=== PATIENT | male | born 1985 | race Hispanic/Latino ===

== ENCOUNTER 2018-03-25 07:27 | Emergency (ER) | payer SELFPAY ==
[2018-03-25] MEDS ORDERED: ONDANSETRON HCL 4 MG/2 ML VIAL ONE (07:41)
[2018-03-25] MEDS ORDERED: MORPHINE SULFATE 2 MG/ML 1ML SYG ONE (07:41)
[2018-03-25] MEDS ORDERED: KETOROLAC TROMETHAMINE 30MG/ML ONE (08:18)
[2018-03-25] MEDS ORDERED: LORAZEPAM 2 MG/ML 1 ML VIAL ONE (08:58)
[2018-03-25] MEDS ORDERED: HYDROMORPHONE 1 MG/1 ML AMP ONE (08:59)
[2018-03-25 09:17] LABS: APPEARANCE,URINE TURBID (CLEAR); BILIRUBIN,URINE SMALL (NEGATIVE); COLOR,URINE RED (YELLOW); GLUCOSE, URINE (UA) NEGATIVE (NEGATIVE); KETONES,URINE 5 mg/dL (NEGATIVE); LEUKOCYTE ESTERASE ,URINE LARGE (NEGATIVE); NITRATE,URINE POSITIVE (NEGATIVE); OCCULT BLOOD,URINE LARGE (NEGATIVE); PH,URINE 6.5 (5.0-8.0); PROTEIN,URINE 100 (NEGATIVE); UROBILINOGEN,URINE 0.2 mg/dL (0.2-1.0)
[2018-03-25 09:21] LABS: RBC,URINE TNTC /HPF (0-1)
[2018-03-25 09:22] LABS: BACTERIA,URINE Rare /HPF (None Seen)
[2018-03-25 09:23] LABS: SQUAMOUS EPITHELIAL CELL,UR Rare /HPF (0-2)
[2018-03-25] MEDS ORDERED: SODIUM CHLORIDE 0.9% 100 ML IV ONE (10:04)
[2018-03-25] MEDS ORDERED: CEFTRIAXONE SODIUM 1 GM ONE (10:04)
== END 2018-03-25 10:36 | disposition home or self-care (01) ==
LOC: EDH 07:27
DX: S39.81XA Other specified injuries of abdomen, initial encounter (principal); N30.91 Cystitis, unspecified with hematuria; Z87.442 Personal history of urinary calculi; Z72.0 Tobacco use; W01.198A Fall on same level from slipping, tripping and stumbling with subsequent striking against other object, initial encounter; Y93.01 Activity, walking, marching and hiking; Y92.89 Other specified places as the place of occurrence of the external cause; Y99.8 Other external cause status
CPT/HCPCS: 72100; 74018; 81001; 96374; 96375; 99285; J0696; J1170; J1885; J2060; J2405

== ENCOUNTER 2018-04-07 11:25 | Emergency (ER) | payer SELFPAY ==
[2018-04-07 11:44] LABS: APPEARANCE,URINE CLOUDY (CLEAR); BILIRUBIN,URINE SMALL (NEGATIVE); GLUCOSE, URINE (UA) NEGATIVE (NEGATIVE); KETONES,URINE NEGATIVE (NEGATIVE); LEUKOCYTE ESTERASE ,URINE MODERATE (NEGATIVE); NITRATE,URINE NEGATIVE (NEGATIVE); OCCULT BLOOD,URINE LARGE (NEGATIVE); PH,URINE 5.5 (5.0-8.0); PROTEIN,URINE 100 (NEGATIVE)
[2018-04-07] MEDS ORDERED: ONDANSETRON HCL 4 MG/2 ML VIAL ONE (11:46)
[2018-04-07] MEDS ORDERED: HYDROMORPHONE HCL 0.5 MG/0.5 ML ML ONE (11:47)
[2018-04-07 12:06] LABS: BASOPHILS % (AUTO) 0.9 % (0.0-5.0); EOSINOPHILS % (AUTO) 3.4 % (0.0-8.0); LYMPHOCYTES % (AUTO) 26.3 % (21.0-51.0); MEAN CORPUSCULAR HEMOGLOBIN 29.5 pg (27.0-33.0); MEAN CORPUSCULAR HGB CONC 34.5 g/dL (32.0-36.0); MEAN CORPUSCULAR VOLUME 85.5 fL (79-99); MONOCYTES % (AUTO) 6.1 % (3.0-13.0); NEUTROPHILS % (AUTO) 63.3 % (40.0-77.0); PLATELET COUNT (AUTO) 308 K/uL (130-400); RED BLOOD CELL COUNT(AUTO) 5.38 MIL/uL (4.50-6.20); RED CELL DISTRIBUTION WIDTH 12.8 % (11.0-15.5); WHITE BLOOD COUNT (AUTO) 10.2 K/uL (4.8-10.8)
[2018-04-07 12:13] LABS: CREATININE 1.2 mg/dL (0.5-1.5); POTASSIUM 3.8 mmol/L (3.5-5.1)
[2018-04-07] MEDS ORDERED: KETOROLAC TROMETHAMINE 30MG/ML ONE (12:16)
[2018-04-07 12:18] LABS: ALBUMIN 3.7 g/dL (3.5-5.0); BILIRUBIN,TOTAL 0.4 mg/dL (0.2-1.0); TOTAL PROTEIN, SERUM 7.4 g/dL (6.0-8.3)
[2018-04-07 12:21] LABS: COLOR,URINE Amber (YELLOW)
[2018-04-07 12:34] LABS: AMPHET/METH SCREEN,URINE NEGATIVE (NEGATIVE); BARBITURATE SCREEN, URINE NEGATIVE (NEGATIVE); BENZODIAZEPINES SCREEN,URINE NEGATIVE (NEGATIVE); CANNABINOID SCREEN,URINE POSITIVE (NEGATIVE); COCAINE SCREEN,URINE NEGATIVE (NEGATIVE); OPIATE SCREEN,URINE POSITIVE (NEGATIVE); PHENCYCLIDINE SCREEN,URINE NEGATIVE (NEGATIVE)
[2018-04-07 12:38] LABS: BACTERIA,URINE Moderate /HPF (None Seen); RBC,URINE TNTC /HPF (0-1); SQUAMOUS EPITHELIAL CELL,UR Rare /HPF (0-2)
== END 2018-04-07 14:42 | disposition home or self-care (01) ==
LOC: EDH 11:25
DX: N20.1 Calculus of ureter (principal); Z87.442 Personal history of urinary calculi; Z72.0 Tobacco use
CPT/HCPCS: 36415; 80053; 80305; 81001; 85025; 96374; 96375; 99284; J1170; J1885; J2405

== ENCOUNTER → 2018-07-11 | Outpatient (CLI) | payer OTHER | END | disposition home or self-care (01) | LOC: RAH 11:05 | PROVIDERS: ATTEND Family Medicine | DX: M17.11 Unilateral primary osteoarthritis, right knee (principal) | CPT/HCPCS: 73562 ==

== ENCOUNTER 2019-09-13 06:44 | Day surgery (SDC) | payer OTHER ==
[2019-09-12 15:46] LABS: BASOPHILS % (AUTO) 0.6 % (0.0-5.0); EOSINOPHILS % (AUTO) 3.3 % (0.0-8.0); LYMPHOCYTES % (AUTO) 24.3 % (21.0-51.0); MEAN CORPUSCULAR HEMOGLOBIN 29.9 pg (27.0-33.0); MEAN CORPUSCULAR HGB CONC 33.6 g/dL (32.0-36.0); MONOCYTES % (AUTO) 8.8 % (3.0-13.0); PLATELET COUNT (AUTO) 229 K/uL (130-400); RED BLOOD CELL COUNT(AUTO) 5.62 MIL/uL (4.50-6.20); RED CELL DISTRIBUTION WIDTH 13.1 % (11.0-15.5); WHITE BLOOD COUNT (AUTO) 11.7 K/uL (4.8-10.8)
[2019-09-12 15:55] VITALS: BP 175/83
[2019-09-12 16:01] LABS: POTASSIUM 3.9 mmol/L (3.5-5.1)
[2019-09-12 16:23] VITALS: BP 140/79
--- NOTE | 2019-09-12 18:21 | NUR ---
NOTIFIED OF WBC 11.7, NO NEW ORDERS, OKAY TO PROCEED.
[2019-09-13] VITALS (19 sets, daily range): BP systolic 122–164; BP diastolic 59–95
[~2019-09-13] VITALS: Ht 188 cm; Wt 136.8 kg
[~2019-09-13 06:44] MED LIST: CLINDAMYCIN 900 MG/D5% WATER 50 ML IV SCH
[2019-09-13] MEDS ORDERED: LACTATED RINGERS 1000ML 1,000 ML IV ONE (07:34)
[2019-09-13] MEDS ORDERED: SUCCINYLCHOLINE 200MG/10ML SYR ONE ×2 (07:51→07:53)
[2019-09-13] MEDS ORDERED: LIDOCAINE PF 2% 5ML ABBOJECT ONE ×2 (07:51→07:52)
[2019-09-13] MEDS ORDERED: DEXAMETHASONE SOD PHOSPHATE 10MG/ML 1ML VIAL ONE (07:51)
[2019-09-13] MEDS ORDERED: ROCURONIUM 10MG/1ML SYR 10 MG/ML ML ONE (07:52)
[2019-09-13] MEDS ORDERED: ONDANSETRON HCL 4 MG/2 ML VIAL ONE ×2 (07:52→11:01)
[2019-09-13] MEDS ORDERED: MIDAZOLAM HCL 1 MG/ML 2ML VIAL ONE (07:52)
[2019-09-13] MEDS ORDERED: FENTANYL CITRATE PF 50 MCG/1 ML 2ML VIAL ONE ×2 (07:52→09:38)
[2019-09-13] MEDS ORDERED: NEOSTIGMINE 5MG/5ML SYR IV ONE (07:52)
[2019-09-13] MEDS ORDERED: GLYCOPYRROLATE 1 MG/5 ML SYRINGE ONE (07:52)
[2019-09-13] MEDS ORDERED: PROPOFOL 10 MG/ML 20ML VIAL IV ONE (07:52)
[2019-09-13] MEDS ORDERED: MEPERIDINE-PF 25 MG/ML SYG ONE ×4 (08:45→10:14)
[2019-09-13] MEDS ORDERED: IBUP-2070 PO (09:52)
[2019-09-13] MEDS ORDERED: ACET1TAB12 PO (09:52)
[2019-09-13] MEDS ORDERED: CLIN300C3 PO (09:52)
== END 2019-09-13 11:57 | disposition home or self-care (01) ==
LOC: DAH 06:44
PROVIDERS: ATTEND Orthopaedic Surgery
DX: M23.91 Unspecified internal derangement of right knee (principal); M22.41 Chondromalacia patellae, right knee; M25.561 Pain in right knee; G89.29 Other chronic pain; M17.11 Unilateral primary osteoarthritis, right knee; I10 Essential (primary) hypertension; E11.9 Type 2 diabetes mellitus without complications; Z88.8 Allergy status to other drugs, medicaments and biological substances; Z79.899 Other long term (current) drug therapy; Z98.890 Other specified postprocedural states; Z87.891 Personal history of nicotine dependence
CPT/HCPCS: 29877; 36415; 80048; 85025; A4215; A4221; A4222; A4223; A4606; A4649; A4663; A4930 ×2; A6223; J0330 ×2; J1100; J2001 ×2; J2175 ×4; J2250; J2405 ×2; J2704; J2710; J3010 ×2; J3490 ×2; J7120 ×2

== ENCOUNTER 2021-06-12 20:42 | Emergency (ER) | payer BC, OTHER ==
[~2021-06-12] VITALS: Ht 188 cm; Wt 149.7 kg
[~2021-06-12 20:42] MED LIST changes: +ACET1TAB12 PO; +CLIN300C3 PO; -CLINDAMYCIN 900 MG/D5% WATER 50 ML IV SCH; +IBUP-2070 PO
[2021-06-12 21:12] VITALS: BP 134/72
[2021-06-12] MEDS ORDERED: TAMSULOSIN HCL 0.4 MG CAP.ER.24H PO SCH (22:00)
[2021-06-12] MEDS ORDERED: KETOROLAC 30MG VIAL (30MG/ML) IV ONE (22:00)
[2021-06-12 22:03] LABS: BASOPHILS % (AUTO) 0.7 % (0.0-5.0); HEMATOCRIT 48.6 % (42-54); MEAN CORPUSCULAR HEMOGLOBIN 29.1 pg (27.0-33.0); MEAN CORPUSCULAR HGB CONC 33.1 g/dL (32.0-36.0); MEAN CORPUSCULAR VOLUME 87.7 fL (79-99); MONOCYTES % (AUTO) 8.5 % (3.0-13.0); NEUTROPHILS % (AUTO) 63.3 % (40.0-77.0); PLATELET COUNT (AUTO) 255 K/uL (130-400); RED BLOOD CELL COUNT(AUTO) 5.54 MIL/uL (4.50-6.20); RED CELL DISTRIBUTION WIDTH 12.9 % (11.0-15.5)
[2021-06-12 22:17] LABS: CARBON DIOXIDE 26 mmol/L (21-32); CHLORIDE 105 mmol/L (101-111); CREATININE 0.9 mg/dL (0.5-1.5); GLOMERULAR FILTR. RATE CALC 101 mL/min (>60); GLUCOSE,RANDOM 102 mg/dL (70-105); POTASSIUM 4.2 mmol/L (3.5-5.1); SODIUM SERUM 143 mmol/L (136-145); UREA NITROGEN, BLOOD 16 mg/dL (7-18)
[2021-06-12 22:22] LABS: ALANINE AMINOTRANSFERASE 41 U/L (12-78); ALBUMIN 4.2 g/dL (3.5-5.0); ASPARTATE AMINOTRANSFERASE 29 U/L (10-37); BILIRUBIN,TOTAL 0.3 mg/dL (0.2-1.0); TOTAL PROTEIN, SERUM 7.8 g/dL (6.0-8.3)
[2021-06-12 22:26] LABS: CRP QUANTITATIVE < 2.00 mg/L (0.00-9.0)
[2021-06-12] MEDS ORDERED: DICY20TA2 PO (23:16)
[2021-06-12 23:23] VITALS: BP 128/67
== END 2021-06-12 23:40 | disposition home or self-care (01) ==
LOC: EDH 20:42
DX: R10.9 Unspecified abdominal pain (principal); Z88.1 Allergy status to other antibiotic agents; Z79.899 Other long term (current) drug therapy; Z87.442 Personal history of urinary calculi
CPT/HCPCS: 36415; 74176; 80053; 85025; 86140; 96374; 99284; J1885

== ENCOUNTER 2021-10-21 12:17 | Emergency (ER) | payer BC ==
[~2021-10-21] VITALS: Ht 188 cm; Wt 147.4 kg
[~2021-10-21 12:17] MED LIST changes: +DICY20TA2 PO
[2021-10-21 13:26] LABS: CREATININE 0.8 mg/dL (0.5-1.5); POTASSIUM 4.1 mmol/L (3.5-5.1)
[2021-10-21 13:30] LABS: BASOPHILS % (AUTO) 0.4 % (0.0-5.0); EOSINOPHILS % (AUTO) 1.8 % (0.0-8.0); HEMATOCRIT 48.4 % (42-54); LYMPHOCYTES % (AUTO) 20.7 % (21.0-51.0); MEAN CORPUSCULAR HEMOGLOBIN 29.4 pg (27.0-33.0); MEAN CORPUSCULAR HGB CONC 33.3 g/dL (32.0-36.0); MEAN CORPUSCULAR VOLUME 88.3 fL (79-99); MONOCYTES % (AUTO) 8.1 % (3.0-13.0); NEUTROPHILS % (AUTO) 68.5 % (40.0-77.0); PLATELET COUNT (AUTO) 242 K/uL (130-400); RED BLOOD CELL COUNT(AUTO) 5.48 MIL/uL (4.50-6.20); RED CELL DISTRIBUTION WIDTH 12.5 % (11.0-15.5); WHITE BLOOD COUNT (AUTO) 10.7 K/uL (4.8-10.8)
[2021-10-21 13:31] LABS: ALBUMIN 3.9 g/dL (3.5-5.0); BILIRUBIN,TOTAL 0.3 mg/dL (0.2-1.0); TOTAL PROTEIN, SERUM 7.2 g/dL (6.0-8.3)
[2021-10-21 14:41] LABS: APPEARANCE,URINE Cloudy (CLEAR); BILIRUBIN,URINE Negative (NEGATIVE); COLOR,URINE Yellow (YELLOW); GLUCOSE, URINE (UA) Negative (NEGATIVE); KETONES,URINE Negative (NEGATIVE); LEUKOCYTE ESTERASE ,URINE Trace (NEGATIVE); NITRATE,URINE Negative (NEGATIVE); OCCULT BLOOD,URINE Negative (NEGATIVE); PROTEIN,URINE Negative (NEGATIVE); UROBILINOGEN,URINE 0.2 mg/dL (0.2-1.0)
[2021-10-21 14:45] VITALS: BP 145/98
[2021-10-21 15:01] LABS: BACTERIA,URINE Few /HPF (None Seen); MUCUS,URINE Rare LPF (None Seen); RBC,URINE 0-1 /HPF (0-1); SQUAMOUS EPITHELIAL CELL,UR Few /HPF (0-2); WBC,URINE 0-1 /HPF (0-1)
[2021-10-21 15:02] LABS: AMORPHOUS SEDIMENT,UR Few /LPF (None Seen)
[2021-10-21] MEDS ORDERED: DiphenhydrAMINE HCL 50 MG/ML VIAL IM ONE (15:30)
[2021-10-21] MEDS ORDERED: DEXAMETHASONE SOD PHOSPHATE 4 MG/ML 1ML VIAL IM SCH (15:30)
[2021-10-21 15:31] LABS: AMPHET/METH SCREEN,URINE NEGATIVE (NEGATIVE); BARBITURATE SCREEN, URINE NEGATIVE (NEGATIVE); BENZODIAZEPINES SCREEN,URINE NEGATIVE (NEGATIVE); CANNABINOID SCREEN,URINE POSITIVE (NEGATIVE); COCAINE SCREEN,URINE NEGATIVE (NEGATIVE); OPIATE SCREEN,URINE NEGATIVE (NEGATIVE); PHENCYCLIDINE SCREEN,URINE NEGATIVE (NEGATIVE)
[2021-10-21] MEDS ORDERED: FAMOTIDINE 20MG TAB ONE (15:43)
[2021-10-21] MEDS ORDERED: HYDR-3421 PO (16:10)
[2021-10-21] MEDS ORDERED: METH4TAB3 PO (16:10)
[2021-10-21] MEDS ORDERED: FAMO40TA75 PO (16:10)
[2021-10-21] MEDS ORDERED: FAMOTIDINE 20MG TAB PO SCH (21:00)
== END 2021-10-21 16:59 | disposition home or self-care (01) ==
LOC: EDH 12:17
DX: L50.9 Urticaria, unspecified (principal); R07.89 Other chest pain; Z79.1 Long term (current) use of non-steroidal anti-inflammatories (NSAID); Z79.52 Long term (current) use of systemic steroids; Z88.1 Allergy status to other antibiotic agents; Z87.442 Personal history of urinary calculi
CPT/HCPCS: 36415; 71045; 80053; 80305; 81001; 85025; 93005; 96372 ×2; 99284; J1100; J1200

== ENCOUNTER 2022-06-21 13:27 | Emergency (ER) | payer BC ==
[~2022-06-21] VITALS: Ht 188 cm; Wt 140.6 kg
[~2022-06-21 13:27] MED LIST changes: +FAMO40TA75 PO; +HYDR-3421 PO; +METH4TAB3 PO
[2022-06-21] MEDS ORDERED: METH4TAB3 PO (14:41)
[2022-06-21 14:50] VITALS: BP 137/64
== END 2022-06-21 14:51 | disposition home or self-care (01) ==
LOC: EDH 13:27
DX: M77.11 Lateral epicondylitis, right elbow (principal); I10 Essential (primary) hypertension; Z79.1 Long term (current) use of non-steroidal anti-inflammatories (NSAID); Z79.52 Long term (current) use of systemic steroids; Z88.1 Allergy status to other antibiotic agents
CPT/HCPCS: 73080

== ENCOUNTER 2022-07-12 12:29 | Emergency (ER) | payer BC ==
[~2022-07-12] VITALS: Ht 188 cm; Wt 145.1 kg
[2022-07-12 13:21] VITALS: BP 140/76
[2022-07-12] MEDS ORDERED: KETOROLAC 60 MG VIAL (30MG/ML) IM ONE ×2 (13:30→13:46)
[2022-07-12] MEDS ORDERED: DEXAMETHASONE SOD PHOSPHATE 4 MG/ML 1ML VIAL IM ONE (13:30)
[2022-07-12] MEDS ORDERED: ACET1TAB97 PO (13:37)
[2022-07-12] MEDS ORDERED: IBUP-2070 PO (13:37)
[2022-07-12] MEDS ORDERED: METH4TAB3 PO (13:37)
[2022-07-12] MEDS ORDERED: DEXAMETHASONE SOD PHOSPHATE 4 MG/ML 1ML VIAL ONE (13:46)
== END 2022-07-12 14:13 | disposition home or self-care (01) ==
LOC: EDH 12:29
DX: M54.17 Radiculopathy, lumbosacral region (principal); I10 Essential (primary) hypertension; Z79.1 Long term (current) use of non-steroidal anti-inflammatories (NSAID); Z79.52 Long term (current) use of systemic steroids; Z87.442 Personal history of urinary calculi; Z88.1 Allergy status to other antibiotic agents
CPT/HCPCS: 99284; 96372 ×2; J1100; J1885

== ENCOUNTER 2023-01-19 09:39 | Emergency (ER) | payer BC ==
[~2023-01-19] VITALS: Ht 188 cm; Wt 142.9 kg
[~2023-01-19 09:39] MED LIST changes: +ACET1TAB97 PO
[2023-01-19 09:44] VITALS: BP 164/89
[2023-01-19 10:27] LABS: APPEARANCE,URINE CLEAR (CLEAR); BILIRUBIN,URINE NEGATIVE (NEGATIVE); COLOR,URINE LIGHT-YELLOW (YELLOW); GLUCOSE, URINE (UA) NEGATIVE (NEGATIVE); KETONES,URINE NEGATIVE (NEGATIVE); LEUKOCYTE ESTERASE ,URINE NEGATIVE Leu/uL (NEGATIVE); NITRATE,URINE NEGATIVE (NEGATIVE); OCCULT BLOOD,URINE NEGATIVE (NEGATIVE); PH,URINE 6.5 (5.0-8.0); PROTEIN,URINE NEGATIVE (NEGATIVE); UROBILINOGEN,URINE 0.2 mg/dL (0.2-1.0)
[2023-01-19] MEDS ORDERED: ONDANSETRON 4MG INJ IVP ONE (10:30)
[2023-01-19] MEDS ORDERED: MORPHINE 4 MG SYG IVP ONE (10:30)
[2023-01-19] MEDS ORDERED: 0.9%NACL 1000ML 1,000 ML IV ONE (10:30)
[2023-01-19] MEDS ORDERED: KETOROLAC 15MG/ML VIAL (15MG/ML) IV ONE (10:30)
[2023-01-19 10:34] LABS: CREATININE 0.9 mg/dL (0.5-1.5); POTASSIUM 3.8 mmol/L (3.5-5.1)
[2023-01-19 10:36] LABS: BASOPHILS % (AUTO) 0.6 % (0.0-5.0); EOSINOPHILS % (AUTO) 2.5 % (0.0-8.0); HEMATOCRIT 48.2 % (42-54); LYMPHOCYTES % (AUTO) 19.2 % (21.0-51.0); MEAN CORPUSCULAR HEMOGLOBIN 29.8 pg (27.0-33.0); MEAN CORPUSCULAR VOLUME 87.5 fL (79-99); MONOCYTES % (AUTO) 8.6 % (3.0-13.0); NEUTROPHILS % (AUTO) 68.5 % (40.0-77.0); PLATELET COUNT (AUTO) 231 K/uL (130-400); RED BLOOD CELL COUNT(AUTO) 5.51 MIL/uL (4.50-6.20); RED CELL DISTRIBUTION WIDTH 12.8 % (11.0-15.5); WHITE BLOOD COUNT (AUTO) 9.8 K/uL (4.8-10.8)
[2023-01-19 10:39] LABS: ALBUMIN 3.5 g/dL (3.5-5.0); TOTAL PROTEIN, SERUM 6.4 g/dL (6.0-8.3)
[2023-01-19] MEDS ORDERED: NAPR500T6 PO (11:28)
[2023-01-19] MEDS ORDERED: CYCL10TA16 PO (11:28)
== END 2023-01-19 11:38 | disposition home or self-care (01) ==
LOC: EDH 09:39
DX: M54.50 Low back pain, unspecified (principal); I10 Essential (primary) hypertension
CPT/HCPCS: 99284; 74176; 96374; 96375; 80053; 85025; 81003; 36415; J7030; J2405; J2270; J1885

== ENCOUNTER 2023-03-16 11:12 | Observation (INO) | payer BC ==
[~2023-03-16] VITALS: Ht 188 cm; Wt 147.6 kg
[~2023-03-16 11:12] MED LIST changes: +CYCL10TA16 PO; +NAPR500T6 PO
[2023-03-16 11:44] LABS: BASOPHILS % (AUTO) 0.6 % (0.0-5.0); EOSINOPHILS % (AUTO) 0.7 % (0.0-8.0); HEMATOCRIT 54.4 % (42-54); MEAN CORPUSCULAR HEMOGLOBIN 29.4 pg (27.0-33.0); MEAN CORPUSCULAR HGB CONC 33.8 g/dL (32.0-36.0); MONOCYTES % (AUTO) 7.6 % (3.0-13.0); NEUTROPHILS % (AUTO) 75.1 % (40.0-77.0); PLATELET COUNT (AUTO) 351 K/uL (130-400); RED BLOOD CELL COUNT(AUTO) 6.25 MIL/uL (4.50-6.20); RED CELL DISTRIBUTION WIDTH 12.9 % (11.0-15.5); WHITE BLOOD COUNT (AUTO) 20.2 K/uL (4.8-10.8)
[2023-03-16] MEDS ORDERED: 0.9%NACL 1000ML 1,000 ML IV ONE ×3 (12:00→16:30)
[2023-03-16 12:10] LABS: CREATININE 1.4 mg/dL (0.5-1.5); POTASSIUM 3.7 mmol/L (3.5-5.1)
[2023-03-16 12:17] LABS: ALBUMIN 4.6 g/dL (3.5-5.0); TOTAL PROTEIN, SERUM 8.1 g/dL (6.0-8.3)
[2023-03-16 13:03] LABS: MAGNESIUM 2.1 mg/dL (1.80-2.40)
[2023-03-16] MEDS ORDERED: DIAZEPAM 5 MG/ML 2 ML SYG ONE (13:05)
[2023-03-16] MEDS: DIAZEPAM 5 MG/ML 2 ML SYG IV PRN (13:10)
[2023-03-16 15:05] LABS: APPEARANCE,URINE CLEAR (CLEAR); BILIRUBIN,URINE NEGATIVE (NEGATIVE); COLOR,URINE LIGHT-YELLOW (YELLOW); GLUCOSE, URINE (UA) NEGATIVE (NEGATIVE); KETONES,URINE NEGATIVE (NEGATIVE); LEUKOCYTE ESTERASE ,URINE NEGATIVE Leu/uL (NEGATIVE); NITRATE,URINE NEGATIVE (NEGATIVE); OCCULT BLOOD,URINE NEGATIVE (NEGATIVE); PH,URINE 7.5 (5.0-8.0); PROTEIN,URINE NEGATIVE (NEGATIVE); UROBILINOGEN,URINE 0.2 mg/dL (0.2-1.0)
[2023-03-16 15:13] LABS: AMPHET/METH SCREEN,URINE NEGATIVE (NEGATIVE); BARBITURATE SCREEN, URINE NEGATIVE (NEGATIVE); BENZODIAZEPINES SCREEN,URINE NEGATIVE (NEGATIVE); CANNABINOID SCREEN,URINE POSITIVE (NEGATIVE); COCAINE SCREEN,URINE NEGATIVE (NEGATIVE); OPIATE SCREEN,URINE NEGATIVE (NEGATIVE); PHENCYCLIDINE SCREEN,URINE NEGATIVE (NEGATIVE)
[2023-03-16 16:19] LABS: BASOPHILS % (AUTO) 0.5 % (0.0-5.0); EOSINOPHILS % (AUTO) 0.6 % (0.0-8.0); HEMATOCRIT 50.1 % (42-54); LYMPHOCYTES % (AUTO) 17.4 % (21.0-51.0); MEAN CORPUSCULAR HEMOGLOBIN 29.7 pg (27.0-33.0); MEAN CORPUSCULAR HGB CONC 34.1 g/dL (32.0-36.0); MONOCYTES % (AUTO) 7.6 % (3.0-13.0); NEUTROPHILS % (AUTO) 72.4 % (40.0-77.0); PLATELET COUNT (AUTO) 286 K/uL (130-400); RED BLOOD CELL COUNT(AUTO) 5.76 MIL/uL (4.50-6.20); RED CELL DISTRIBUTION WIDTH 12.8 % (11.0-15.5); WHITE BLOOD COUNT (AUTO) 17.9 K/uL (4.8-10.8)
[2023-03-16] MEDS ORDERED: ONDANSETRON 4MG INJ ONE (16:46)
[2023-03-16] MEDS ORDERED: CEFTRIAXONE 1G VIAL IVPB ONE (17:00)
[2023-03-16] MEDS ORDERED: MORPHINE 2 MG SYG ONE (20:48)
[2023-03-16] MEDS ORDERED: MORPHINE 2 MG SYG IVP ONE (21:00)
[2023-03-16] MEDS ORDERED: CEFTRIAXONE 1G VIAL 2 GM in 0.9%NACL 100ML 100 ML IV SCH (22:00)
[2023-03-16] MEDS ORDERED: HYDROCODONE/ACETAMINOPHEN 7.5/325 MG TAB PO PRN (22:00)
[2023-03-16] MEDS ORDERED: ACETAMINOPHEN 325 MG TAB PO PRN (22:00)
[2023-03-16] MEDS ORDERED: LACTATED RINGERS 1000ML 1,000 ML IV SCH (22:00)
[2023-03-16] MEDS ORDERED: DiphenhydrAMINE HCL 50 MG/ML VIAL IV PRN (22:00)
[2023-03-17] MEDS: IPRATROPIUM 0.5 MG/2.5 ML INH IH SCH ×5 (00:23→23:11)
[2023-03-17] MEDS: LACTATED RINGERS 1000ML 1,000 ML IV SCH ×4 (01:04→21:00)
[2023-03-17] MEDS ORDERED: IOHEXOL 350 MG/ML 100ML INFUS..BTL IV ONE (01:50)
[2023-03-17 02:05] VITALS: BP 162/96
[2023-03-17] MEDS ORDERED: CYCL-309 PO (02:36)
[2023-03-17] MEDS ORDERED: GABA600T10 PO (02:36)
[2023-03-17] MEDS ORDERED: TRAM50TA4 PO (02:36)
[2023-03-17] MEDS ORDERED: LISI1TAB49 PO (02:36)
[2023-03-17] MEDS ORDERED: METH4TAB15 PO (02:36)
[2023-03-17] MEDS: LIDOCAINE 4% ADH..PATCH TP SCH ×2 (03:00→09:55)
[2023-03-17] MEDS: MORPHINE 2 MG SYG IVP PRN ×2 (03:01→23:54)
[2023-03-17 03:58] VITALS: BP 151/99
[2023-03-17] MEDS ORDERED: SEMA0.258 SQ (03:58)
[2023-03-17] MEDS ORDERED: HYDROMORPHONE 1 MG INJ IVP ONE (05:00)
[2023-03-17 06:34] LABS: BASOPHILS % (AUTO) 0.6 % (0.0-5.0); EOSINOPHILS % (AUTO) 2.6 % (0.0-8.0); HEMATOCRIT 49.7 % (42-54); LYMPHOCYTES % (AUTO) 26.8 % (21.0-51.0); MEAN CORPUSCULAR HGB CONC 32.8 g/dL (32.0-36.0); MEAN CORPUSCULAR VOLUME 88.3 fL (79-99); MONOCYTES % (AUTO) 9.6 % (3.0-13.0); NEUTROPHILS % (AUTO) 59.2 % (40.0-77.0); PLATELET COUNT (AUTO) 267 K/uL (130-400); RED BLOOD CELL COUNT(AUTO) 5.63 MIL/uL (4.50-6.20); WHITE BLOOD COUNT (AUTO) 13.3 K/uL (4.8-10.8)
[2023-03-17 06:43] LABS: HEMOGLOBIN A1C 6.1 % (4.0-6.0)
[2023-03-17 06:59] LABS: ALBUMIN 3.8 g/dL (3.5-5.0); BILIRUBIN,DIRECT 0.1 mg/dL (0.0-0.3); CREATININE 0.9 mg/dL (0.5-1.5); MAGNESIUM 2.2 mg/dL (1.80-2.40); POTASSIUM 4.3 mmol/L (3.5-5.1); THYROID STIMULATING HORMONE 2.71 uIU/mL (0.36-3.74); TOTAL PROTEIN, SERUM 6.8 g/dL (6.0-8.3)
[2023-03-17 08:00] VITALS: BP 146/94
[2023-03-17] MEDS ORDERED: FAMOTIDINE 20MG VIAL IV SCH (09:00)
[2023-03-17] MEDS: FAMOTIDINE 20MG VIAL IV SCH ×2 (09:55→20:58)
[2023-03-17] MEDS: ENOXAPARIN SODIUM 40 MG/0.4 ML SYRINGE SQ SCH (09:57)
[2023-03-17] MEDS: OXYCODONE/ACETAMIN 5/325MG TAB PO PRN (10:04)
[2023-03-17 12:00] VITALS: BP 149/102
[2023-03-17] MEDS: CYCLOBENZAPRINE HCL 10 MG TABLET PO PRN ×2 (13:07→20:58)
[2023-03-17 16:00] VITALS: BP 157/100
[2023-03-17] MEDS: KETOROLAC 10 MG TABLET PO PRN ×2 (17:11→23:11)
[2023-03-17 20:00] VITALS: BP 137/86
[2023-03-18] VITALS: BP 149/99
[2023-03-18] MEDS: LACTATED RINGERS 1000ML 1,000 ML IV SCH ×2 (01:24→10:48)
[2023-03-18] MEDS: DIAZEPAM 5 MG/ML 2 ML SYG IV PRN (01:25)
[2023-03-18] MEDS ORDERED: HYDROMORPHONE 1 MG INJ IVP ONE (04:00)
[2023-03-18 04:05] VITALS: BP 150/90
[2023-03-18 05:35] LABS: HEMATOCRIT 48.3 % (42-54); MEAN CORPUSCULAR HEMOGLOBIN 29.2 pg (27.0-33.0); MEAN CORPUSCULAR HGB CONC 32.9 g/dL (32.0-36.0); MEAN CORPUSCULAR VOLUME 88.8 fL (79-99); RED BLOOD CELL COUNT(AUTO) 5.44 MIL/uL (4.50-6.20); RED CELL DISTRIBUTION WIDTH 12.7 % (11.0-15.5); WHITE BLOOD COUNT (AUTO) 11.2 K/uL (4.8-10.8)
[2023-03-18 05:50] LABS: CREATININE 1.2 mg/dL (0.5-1.5); MAGNESIUM 2.1 mg/dL (1.80-2.40); POTASSIUM 4.6 mmol/L (3.5-5.1)
[2023-03-18] MEDS: IPRATROPIUM 0.5 MG/2.5 ML INH IH SCH ×2 (07:02→11:27)
[2023-03-18] MEDS: OXYCODONE/ACETAMIN 5/325MG TAB PO PRN (08:19)
[2023-03-18] MEDS: FAMOTIDINE 20MG VIAL IV SCH (08:20)
[2023-03-18] MEDS: ENOXAPARIN SODIUM 40 MG/0.4 ML SYRINGE SQ SCH (08:21)
[2023-03-18] MEDS: LIDOCAINE 4% ADH..PATCH TP SCH (08:21)
[2023-03-18] MEDS: CYCLOBENZAPRINE HCL 10 MG TABLET PO PRN (08:28)
[2023-03-18 08:40] VITALS: BP 165/108
[2023-03-18] MEDS: KETOROLAC 10 MG TABLET PO PRN (09:47)
[2023-03-18 12:08] VITALS: BP 154/97
== END 2023-03-18 12:30 | disposition home or self-care (01) ==
LOC: EDH 11:12 → EDHIP 21:37 → 3DH 03-17 01:43
PROVIDERS: ADMIT Internal Medicine Pulmonary Disease; ATTEND Internal Medicine Pulmonary Disease
DX: A41.9 Sepsis, unspecified organism (principal); Z20.822 Contact with and (suspected) exposure to COVID-19; R65.20 Severe sepsis without septic shock; R25.2 Cramp and spasm; I10 Essential (primary) hypertension; E11.9 Type 2 diabetes mellitus without complications; E66.9 Obesity, unspecified; E87.20 Acidosis, unspecified; F41.9 Anxiety disorder, unspecified; G47.33 Obstructive sleep apnea (adult) (pediatric); Z79.899 Other long term (current) drug therapy; Z87.442 Personal history of urinary calculi; Z98.890 Other specified postprocedural states; Z68.41 Body mass index [BMI] 40.0-44.9, adult
CPT/HCPCS: 96374; 96361 ×5; 96375 ×2; 99285; 82550 ×3; 83735 ×3; 84484 ×2; 80053; 83880; 80305; 83690; 85025 ×3; 85378; 87040 ×2; 87088; 87804 ×2; 83605 ×3; 86701; 87390; 86140; 81003; 36415 ×3; 87635; 71046; 76700; 93005; 94664; 96376 ×2; 96372 ×2; 83036; 84443; 80076; 82330; 80061; 80048 ×2; 82140; 82948 ×6; 72133; 93306; 94640 ×7; 84145; 85027; G0378 ×34; J2270 ×3; J3360 ×2; J0696; J2405; J3490 ×3; J1170 ×2; J1650 ×2; Q9967

== ENCOUNTER 2023-05-11 08:54 | Emergency (ER) | payer BC ==
[~2023-05-11] VITALS: Ht 188 cm; Wt 145.1 kg
[~2023-05-11 08:54] MED LIST changes: -ACET1TAB12 PO; -ACET1TAB97 PO; -CLIN300C3 PO; +CYCL-309 PO; -CYCL10TA16 PO; -DICY20TA2 PO; -FAMO40TA75 PO; +GABA600T10 PO; -HYDR-3421 PO; -IBUP-2070 PO; +LISI1TAB49 PO; +METH4TAB15 PO; -METH4TAB3 PO; -NAPR500T6 PO; +SEMA0.258 SQ; +TRAM50TA4 PO
[2023-05-11 08:59] VITALS: BP 168/78; PULSE 83; RESP 16
[2023-05-11] MEDS ORDERED: PRED20TA3 PO (14:15)
[2023-05-11] MEDS ORDERED: METH-811 PO (14:15)
[2023-05-11] MEDS ORDERED: IBUP-2070 PO (14:15)
[2023-05-11] MEDS ORDERED: TIZANIDINE HCL 2 MG TABLET PO SCH (14:30)
[2023-05-11] MEDS ORDERED: IBUPROFEN 600 MG TABLET PO ONE (14:30)
[2023-05-11] MEDS ORDERED: PREDNISONE 20 MG TABLET PO ONE (14:30)
[2023-05-11] MEDS ORDERED: DIAZEPAM 5 MG TABLET PO ONE (14:30)
[2023-05-11] MEDS ORDERED: HYDROCODONE/ACETAMINOPHEN 5/325 MG TAB PO ONE (14:30)
== END 2023-05-11 16:09 | disposition home or self-care (01) ==
LOC: EDH 08:54
DX: G89.29 Other chronic pain (principal); M54.50 Low back pain, unspecified; E11.9 Type 2 diabetes mellitus without complications; I10 Essential (primary) hypertension; Z79.52 Long term (current) use of systemic steroids; Z79.899 Other long term (current) drug therapy; Z88.1 Allergy status to other antibiotic agents; Z90.49 Acquired absence of other specified parts of digestive tract